=== PATIENT | female | born 1955 | race Hispanic/Latino ===

== ENCOUNTER 2016-09-14 06:34 | Emergency (ER) | payer MEDICARE ==
[2016-09-14 06:34] VITALS: BMI 22.8
[2016-09-14 06:59] VITALS: PULSE 92; RESP 20; TEMP 98; O2SAT 97
[2016-09-14 07:45] LABS: BASO % 0.5 % (0.0-2.0); EOS # 0.1 K/uL (0.0-0.7); EOS % 1.3 % (0.0-4.0); HEMATOCRIT 35.9 % (34.0-47.0); LYMPH # 1.5 K/uL (1.0-4.3); LYMPH % 14.6 % (20.0-40.0); MEAN CELL VOLUME 100.9 fl (81.0-99.0); MEAN CORPUSCULAR HEMOGLOBIN 33.8 pg (27.0-31.0); MEAN CORPUSCULAR HGB CONC 33.5 g/dL (33.0-37.0); MEAN PLATELET VOLUME 7.1 fl (7.2-11.7); MONO # 0.6 K/uL (0.0-0.8); MONO % 6.1 % (0.0-10.0); NEUT # 8.1 K/uL (1.8-7.0); NEUT % 77.5 % (50.0-75.0); RED CELL DISTRIBUTION WIDTH 16.2 % (11.5-14.5); WHITE BLOOD COUNT 10.4 K/uL (4.8-10.8)
[2016-09-14 08:04] LABS: ALB/GLOB RATIO 1.2 (1.0-2.1); ALKALINE PHOSPHATASE 80 U/L (38-126); ALT/SGPT 28 U/L (9-52); AST/SGOT 33 U/L (14-36); BILIRUBIN,TOTAL 0.4 mg/dl (0.2-1.3); BLOOD UREA NITROGEN 21 mg/dl (7-17); CALCIUM 8.9 mg/dL (8.4-10.2); CARBON DIOXIDE 24 mmol/L (22-30); CHLORIDE 107 mmol/L (98-107); GFR AFRICAN-AMERICAN > 60; GLUCOSE,RANDOM 123 mg/dL (65-105); PARTIAL THROMBOPLASTIN TIME 27.5 SECONDS (23.3-32.5); POTASSIUM 4.4 MMOL/L (3.6-5.0); SODIUM 141 mmol/l (132-148); TOTAL PROTEIN 7.2 G/DL (6.3-8.2)
--- NOTE | 2016-09-14 08:05 | ED PDOC ---
HPI: CCC, URI, Sore Throat Time Seen by Provider: 09/14/16 07:12 Chief Complaint (Nursing): ENT Problem Chief Complaint (Provider): ENT Problem History Per: Patient History/Exam Limitations: no limitations Onset/Duration Of Symptoms: Hrs Current Symptoms Are (Timing): Still Present Location Of Pain: Other Sick Contacts (Context): None Associated Symptoms: denies: Cough, Vomiting, Diarrhea Severity: Mild Additional Complaint(s): Patient is a 61 year old female with multiple medical conditions taking Plavix and ASA daily, presents to ED for a nose bleed that began yesterday evening. Patient states the bleeding is from the right nare and worsened overnight with multiple blood clots. Patient admits to frequently blowing her nose over night. Denies dark/tarry stools, vomiting or trauma Past Medical History Reviewed: Historical Data, Nursing Documentation, Vital Signs Vital Signs: Last Vital Signs Temp 98 F 09/14/16 06:58 Pulse 92 H 09/14/16 06:58 Resp 20 09/14/16 11:15 BP 131/69 09/14/16 11:15 Pulse Ox 97 09/14/16 11:17 - Medical History PMH: Anemia, Anxiety, Asthma, CAD, COPD Denies: Fractures, Chronic Kidney Disease - Surgical History Surgical History: Coronary Stent Denies: Pacemaker - Family History Family History: States: Unknown Family Hx - Living Arrangements Living Arrangements: With Family - Social History Current smoker - smoking cessation education provided: Yes Alcohol: None Drugs: Denies - Immunization History Hx Tetanus Toxoid Vaccination: No Hx Influenza Vaccination: No Hx Pneumococcal Vaccination: No - Home Medications Home Medications: Ambulatory Orders Medication Instructions Recorded Alprazolam [Xanax] 0.25 mg PO HS 02/27/12 Aspirin [Ecotrin] 81 mg PO DAILY 10/03/15 Cilostazol [Pletal] 100 mg PO BID 10/03/15 Clopidogrel [Plavix] 75 mg PO DAILY 10/03/15 Levothyroxine Sodium [Synthroid] 50 mcg PO QAM 10/03/15 Simvastatin [Zocor] 40 mg PO HS 10/03/15 Omeprazole [Prilosec] 40 mg PO DAILY 10/04/15 Sodium Chloride [Saline Mist] 44 ml NS TID #1 spray 09/14/16 - Allergies Allergies/Adverse Reactions: Allergies Allergy/AdvReac Type Severity Reaction Status Date / Time codeine Allergy Verified 08/20/15 13:34 Review of Systems Constitutional: Negative for: Weakness Eyes: Negative for: Vision Change ENT: Positive for: Nose Discharge. Negative for: Throat Swelling Cardiovascular: Negative for: Palpitations Gastrointestinal: Negative for: Nausea, Vomiting, Diarrhea, Melena, Hematochezia , Hematemesis Genitourinary Female: Negative for: Hematuria Neurological: Negative for: Weakness, Numbness, Headache, Dizziness Physical Exam - Reviewed Nursing Documentation Reviewed: Yes Vital Signs Reviewed: Yes - Physical Exam Appears: Positive for: Non-toxic Head Exam: Positive for: ATRAUMATIC Skin: Positive for: Normal Color, Warm. Negative for: Pallor Eye Exam: Positive for: Normal appearance, PERRL ENT: Positive for: Other (Right nare with area of active bleeding, to medial anterior nare) Neck: Positive for: Normal, Painless ROM Extremity: Positive for: Normal ROM Neurologic/Psych: Positive for: Alert, Oriented - Laboratory Results Result Diagrams: 09/14/16 07:36 09/14/16 07:36 - ECG O2 Sat by Pulse Oximetry: 97 (RA) Pulse Ox Interpretation: Normal Medical Decision Making Medical Decision Making: Time: 729 Initial impression: Epistaxis Initial plan: -- CMP -- PT/PTT Rhino-rocket to be placed in nare for nasal tampinode Time: 1030 As per patient request, Rhino-rocket removed, no bleeding at this time Time: 1115 Patient monitored for 45 minutes in ED, no return of bleeding. Patient denies headache, dizziness or weakness. States she feels comfortable with discharge home. Instructions for follow up with PMD given. Scribe Attestation: Documented by Megan Woodard acting as a scribe for Humberto Maya DO MD Scribe Attestation: All medical record entries made by the Scribe were at my direction and personally dictated by me. I have reviewed the chart and agree that the record accurately reflects my personal performance of the history, physical exam, medical decision making, and the department course for this patient. I have also personally directed, reviewed, and agree with the discharge instructions and disposition. Disposition - Clinical Impression Clinical Impression: Epistaxis - Patient ED Disposition Is Patient to be Admitted: No Counseled Patient/Family Regarding: Studies Performed, Diagnosis, Need For Followup, Rx Given - Disposition Referrals: Bryan Yo MD [Staff Provider] - Disposition Time: 10:45 Condition: STABLE Additional Instructions: Do not blow your nose. Discuss with your doctor before stopping plavix. See ENT for further testing and treatment. Prescriptions: Sodium Chloride [Saline Mist] 44 ml NS TID #1 spray Instructions: Nosebleed (ED)
[2016-09-14 11:16] VITALS: BP 131/69
== END 2016-09-14 11:20 | disposition home or self-care (01) ==
LOC: H.ER 06:34
DX: R04.0 Epistaxis (principal)

== ENCOUNTER 2016-09-30 19:53 | Emergency (ER) | payer MEDICARE ==
[2016-09-30 19:53] VITALS: BMI 22.8
[2016-09-30 20:18] VITALS: TEMP 98.2
--- NOTE | 2016-09-30 20:44 | ED PDOC ---
HPI: Nose Bleed Time Seen by Provider: 09/30/16 20:29 Chief Complaint (Nursing): ENT Problem Chief Complaint (Provider): Nose bleed right x 4 hours History Per: Patient History/Exam Limitations: no limitations Onset/Duration Of Symptoms: Days Current Symptoms Are (Timing): Still Present Additional Complaint(s): Pt states she was seen 2 weeks ago for the same. States at the last visit packing was placed for 2 hours than removed. Pt states bleeding did not re- occur. Pt states she did not f.u with ENT. Pt states that she does not want packing in. Past Medical History Reviewed: Historical Data, Nursing Documentation, Vital Signs Vital Signs: Last Vital Signs Temp 98.2 F 09/30/16 20:15 Pulse 125 H 09/30/16 20:15 Resp 16 09/30/16 20:15 BP 89/58 L 09/30/16 20:15 Pulse Ox 97 09/30/16 20:15 - Medical History PMH: Anemia, Anxiety, Asthma, CAD, COPD Denies: Fractures, Chronic Kidney Disease - Surgical History Surgical History: Coronary Stent Denies: Pacemaker - Family History Family History: States: Unknown Family Hx - Living Arrangements Living Arrangements: With Family - Social History Current smoker - smoking cessation education provided: No Alcohol: None Drugs: Denies - Immunization History Hx Tetanus Toxoid Vaccination: No Hx Influenza Vaccination: No Hx Pneumococcal Vaccination: No - Home Medications Home Medications: Ambulatory Orders Medication Instructions Recorded Alprazolam [Xanax] 0.25 mg PO HS 02/27/12 Aspirin [Ecotrin] 81 mg PO DAILY 10/03/15 Cilostazol [Pletal] 100 mg PO BID 10/03/15 Clopidogrel [Plavix] 75 mg PO DAILY 10/03/15 Levothyroxine Sodium [Synthroid] 50 mcg PO QAM 10/03/15 Simvastatin [Zocor] 40 mg PO HS 10/03/15 Omeprazole [Prilosec] 40 mg PO DAILY 10/04/15 Sodium Chloride [Saline Mist] 44 ml NS TID #1 spray 09/14/16 - Allergies Allergies/Adverse Reactions: Allergies Allergy/AdvReac Type Severity Reaction Status Date / Time codeine Allergy Verified 08/20/15 13:34 Review of Systems ROS Statement: Except As Marked, All Systems Reviewed And Found Negative ENT: Positive for: Other (right nose bleed ) Physical Exam - Reviewed Nursing Documentation Reviewed: Yes Vital Signs Reviewed: Yes - Physical Exam Appears: Positive for: Well, Non-toxic, No Acute Distress Head Exam: Positive for: ATRAUMATIC, NORMAL INSPECTION, NORMOCEPHALIC Skin: Positive for: Normal Color, Warm, DRY Eye Exam: Positive for: Normal appearance ENT: Positive for: Normal ENT Inspection Neck: Positive for: Normal, Painless ROM Respiratory: Negative for: Accessory Muscle Use Back: Positive for: Normal Inspection Extremity: Positive for: Normal ROM Neurologic/Psych: Positive for: Alert, Oriented - ECG O2 Sat by Pulse Oximetry: 97 Medical Decision Making Medical Decision Makin.5cm packing placed in right nostril at 20:45 and removed at 21:56. No bleeding at this time. Discussed f.u with ENT. Disposition - Clinical Impression Clinical Impression: Epistaxis - Patient ED Disposition Is Patient to be Admitted: No Counseled Patient/Family Regarding: Diagnosis, Need For Followup - Disposition Referrals: [facility] [Outside] Disposition: Routine/Home Disposition Time: 22:01 Condition: STABLE Additional Instructions: Please f/u with ENT Return for worsening symptoms. Instructions: Nosebleed (ED)
[2016-09-30 22:05] VITALS: RESP 18
[2016-09-30 22:14] VITALS: BP 126/68; PULSE 89; O2SAT 96
== END 2016-09-30 22:16 | disposition home or self-care (01) ==
LOC: H.ER 19:53
DX: R04.0 Epistaxis (principal)

== ENCOUNTER 2017-01-03 09:57 | Emergency (ER) | payer MEDICARE ==
[2017-01-03 09:57] VITALS: BMI 22.8
[2017-01-03 10:03] VITALS: RESP 20
[2017-01-03 10:08] VITALS: BP 150/78; PULSE 100; O2SAT 98
[2017-01-03] MEDS ORDERED: Bacitracin OINT 15GM TOP STA (10:26)
--- NOTE | 2017-01-03 10:30 | ED PDOC ---
HPI: General Adult Time Seen by Provider: 01/03/17 10:06 Chief Complaint (Nursing): Lower Extremity Problem/Injury History Per: Patient Additional Complaint(s): Pt. states on Saturday pt. tripped and fell injuring her L foot, L knee, and R side of neck. Pt. also reports striking the L side of her onto the pavement but did not lose consciousness nor did she develop a headache. Further states that she attempted the RICE treatment on her injuries without relief prompting ED visit today. Denies LOC, N/V, numbness, tingling, abdominal pain, chest pain, hip/pelvic pain. Of note, pt. is on plavix, cilostazol, and ASA. Past Medical History Reviewed: Historical Data, Nursing Documentation, Vital Signs Vital Signs: Last Vital Signs Temp 98.3 F 01/03/17 10:05 Pulse 100 H 01/03/17 10:05 Resp 20 01/03/17 10:05 BP 150/78 01/03/17 10:05 Pulse Ox 98 01/03/17 10:32 - Medical History PMH: Anemia, Anxiety, Asthma, CAD, COPD Denies: Fractures, Chronic Kidney Disease - Surgical History Surgical History: Coronary Stent Denies: Pacemaker - Family History Family History: States: No Known Family Hx - Immunization History Hx Tetanus Toxoid Vaccination: No Hx Influenza Vaccination: No Hx Pneumococcal Vaccination: No - Home Medications Home Medications: Ambulatory Orders Medication Instructions Recorded Alprazolam [Xanax] 0.25 mg PO HS 02/27/12 Aspirin [Ecotrin] 81 mg PO DAILY 10/03/15 Cilostazol [Pletal] 100 mg PO BID 10/03/15 Clopidogrel [Plavix] 75 mg PO DAILY 10/03/15 Levothyroxine Sodium [Synthroid] 50 mcg PO QAM 10/03/15 Simvastatin [Zocor] 40 mg PO HS 10/03/15 Omeprazole [Prilosec] 40 mg PO DAILY 10/04/15 Sodium Chloride [Saline Mist] 44 ml NS TID #1 spray 09/14/16 Cephalexin [cephalexin] 500 mg PO Q6 #28 cap 01/03/17 - Allergies Allergies/Adverse Reactions: Allergies Allergy/AdvReac Type Severity Reaction Status Date / Time codeine Allergy Mild RASH Verified 01/03/17 10:08 Review of Systems ROS Statement: Except As Marked, All Systems Reviewed And Found Negative Musculoskeletal: Positive for: Neck Pain, Foot Pain Physical Exam - Reviewed Nursing Documentation Reviewed: Yes Vital Signs Reviewed: Yes - Physical Exam Appears: Positive for: Well, Non-toxic, No Acute Distress Head Exam: Positive for: ATRAUMATIC, NORMAL INSPECTION, NORMOCEPHALIC Skin: Positive for: Normal Color, Warm. Negative for: Rash Eye Exam: Positive for: EOMI, Normal appearance, PERRL ENT: Positive for: Normal ENT Inspection Neck: Positive for: Normal, Painless ROM Cardiovascular/Chest: Positive for: Regular Rate, Rhythm, Chest Non Tender Respiratory: Positive for: CNT, Normal Breath Sounds Pulses-Dorsalis Pedis (L): 2+ Pulses-Dorsalis Pedis (R): 2+ Gastrointestinal/Abdominal: Positive for: Normal Exam, Bowel Sounds, Soft. Negative for: Tenderness Back: Positive for: Normal Inspection. Negative for: L CVA Tenderness, R CVA Tenderness, Vertebral Tenderness Extremity: Positive for: Normal ROM, Capillary Refill (< 2 seconds b/l of lower extremities), Other (L foot with mild tenderness on medial surface without deformity or swelling, L knee with large superficial abrasion and with mild swelling and tenderness on anterior surface; ). Negative for: Pedal Edema Neurologic/Psych: Positive for: Alert, Oriented, Gait (steady and unassisted). Negative for: Aphasia, Facial Droop - ECG O2 Sat by Pulse Oximetry: 98 - Radiology X-Ray: Interpreted by Me (L foot, L knee, c-spine xrays) X-Ray Interpretation: No Acute Disease - CT Scan/US CT head w/o contrast Other Rad Studies (CT/US): Read By Radiologist (negative) - Progress ED Course And Treament: Tylenol 975mg PO ordered. CT head w/o contrast ordered. L foot, L knee, c-spine x-rays ordered. Wounds cleansed and dressed. Bacitracin applied over wound. Tetanus prophylaxis administered. Disposition - Clinical Impression Clinical Impression: Head injury, Foot injury, Knee injury, Abrasion - Patient ED Disposition Is Patient to be Admitted: No - Disposition Disposition: Routine/Home Disposition Time: 13:00 Condition: STABLE Prescriptions: Cephalexin [cephalexin] 500 mg PO Q6 #28 cap Instructions: Head Injury (ED), Sprain (ED), Abrasion (ED) Print Language: MALAY
--- NOTE | 2017-01-03 11:29 | CT ---
PROCEDURE: CT HEAD WITHOUT CONTRAST. HISTORY: trauma COMPARISON: None available. TECHNIQUE: Axial computed tomography images were obtained through the head/brain without intravenous contrast. Radiation dose: Total exam DLP = 763.05 mGy-cm. This CT exam was performed using one or more of the following dose reduction techniques: Automated exposure control, adjustment of the mA and/or kV according to patient size, and/or use of iterative reconstruction technique. FINDINGS: HEMORRHAGE: No intracranial hemorrhage. BRAIN: No mass effect or edema. Minimal chronic periventricular white matter ischemic change. VENTRICLES: Unremarkable. No hydrocephalus. CALVARIUM: No calvarial fracture. Minimal ecchymosis of the high left parietal scalp indicating probable focal trauma. PARANASAL SINUSES: Unremarkable as visualized. No significant inflammatory changes. MASTOID AIR CELLS: Unremarkable as visualized. No inflammatory changes. OTHER FINDINGS: None. IMPRESSION: No intracranial hemorrhage. Otherwise unremarkable.
--- NOTE | 2017-01-03 12:14 | RAD ---
PROCEDURE: Cervical Spine Radiographs. HISTORY: Pain. COMPARISON: None. FINDINGS: BONES: Alignment maintained. No fracture. Dens Intact. DISC SPACES: There is disc degeneration at C5-6 with anterior and posterior osteophytes SOFT TISSUES: Normal. No prevertebral soft tissue swelling. OTHER FINDINGS: None. IMPRESSION: There is disc degeneration at C5-6 with anterior and posterior osteophytes
--- NOTE | 2017-01-03 12:15 | RAD ---
PROCEDURE: Left Knee Radiographs. HISTORY: Pain. COMPARISON: None. FINDINGS: BONES: Normal. No fracture. JOINTS: Normal. No osteoarthritis. JOINT EFFUSION: None. OTHER FINDINGS: The patella is unremarkable IMPRESSION: Normal radiographs of the left knee.
--- NOTE | 2017-01-03 12:16 | RAD ---
PROCEDURE: Left Foot Radiographs. HISTORY: trauma COMPARISON: None. FINDINGS: BONES: Normal. No fracture. JOINTS: Normal. SOFT TISSUES: Normal. OTHER FINDINGS: None. IMPRESSION: Normal left foot radiographs.
[2017-01-03] MEDS ORDERED: TDAP Vaccine 0.5 mL Syr IM ONE (12:59)
[2017-01-03 13:52] VITALS: TEMP 98.7
== END 2017-01-03 13:30 | disposition home or self-care (01) ==
LOC: H.ER 09:57
DX: S09.90XA Unspecified injury of head, initial encounter (principal); S99.922A Unspecified injury of left foot, initial encounter; W01.0XXA Fall on same level from slipping, tripping and stumbling without subsequent striking against object, initial encounter; Y92.89 Other specified places as the place of occurrence of the external cause; Z79.82 Long term (current) use of aspirin; M50.323 Other cervical disc degeneration at C6-C7 level; Z95.5 Presence of coronary angioplasty implant and graft

== ENCOUNTER 2017-01-09 21:15 | Observation (INO) | payer MEDICARE ==
[2017-01-09 21:15] VITALS: BMI 22.8
[2017-01-09 22:21] LABS: BASO # 0.1 K/uL (0.0-0.2); BASO % 1.1 % (0.0-2.0); EOS # 0.1 K/uL (0.0-0.7); EOS % 1.6 % (0.0-4.0); HEMOGLOBIN 13.7 g/dL (12.0-16.0); LYMPH # 2.4 K/uL (1.0-4.3); LYMPH % 30.2 % (20.0-40.0); MEAN CORPUSCULAR HEMOGLOBIN 32.2 pg (27.0-31.0); MEAN CORPUSCULAR HGB CONC 32.9 g/dL (33.0-37.0); MEAN PLATELET VOLUME 7.4 fl (7.2-11.7); MONO # 0.5 K/uL (0.0-0.8); MONO % 6.9 % (0.0-10.0); NEUT # 4.8 K/uL (1.8-7.0); NEUT % 60.2 % (50.0-75.0); RBC 4.24 Mil/uL (3.80-5.20); RED CELL DISTRIBUTION WIDTH 15.6 % (11.5-14.5); WHITE BLOOD COUNT 7.9 K/uL (4.8-10.8)
[2017-01-09 22:29] LABS: BLOOD UREA NITROGEN 12 mg/dl (7-17); CALCIUM 10.1 mg/dL (8.4-10.2); GFR AFRICAN-AMERICAN > 60; GFR NON-AFRICAN AMERICAN > 60
[2017-01-09 22:36] LABS: PARTIAL THROMBOPLASTIN TIME 35.3 Seconds (25.6-37.1); PROTHROMBIN TIME 11.6 Seconds (9.8-13.1)
--- NOTE | 2017-01-09 22:36 | ED PDOC ---
HPI: General Adult Time Seen by Provider: 01/09/17 21:35 Chief Complaint (Nursing): Weakness/Neurological Deficit Chief Complaint (Provider): Weakness/Neurological Deficit History Per: Patient History/Exam Limitations: no limitations Onset/Duration Of Symptoms: Days (x3 days) Current Symptoms Are (Timing): Still Present Additional Complaint(s): 61 y/o female with a past medical history of hypertension, chronic obstructive pulmonary disease, and peripheral vascular disease (PVD) who presents to the emergency department with a complaint of left sided numbness x3 days. Associated with left lower leg numbness. States numbness is intermittent. Reports additional complaints of a burning and swelling sensation with pain of the left lower leg x1 week. Patient visited this facility 2 weeks ago with injury of the lef knee and connects it with current complaints. Denies chest pain, dizziness, syncope, weakness, blurry vision, slurred speech, facial droop , headache or any new fall. Of note, patient visited this emergency room when she feel 2 weeks ago and sustained left knee injury. Completed Head CAT Scan and left knee x-ray show no acute findings and was discharged home. PMD: Dr. Isela Desouza MD Past Medical History Reviewed: Historical Data, Nursing Documentation, Vital Signs Vital Signs: Last Vital Signs Temp 98.8 F 01/10/17 16:24 Pulse 85 01/10/17 16:24 Resp 16 01/10/17 16:24 BP 100/67 01/10/17 16:24 Pulse Ox 96 01/10/17 16:24 - Medical History PMH: Anemia, Anxiety, Asthma, CAD, COPD Denies: Fractures, Chronic Kidney Disease Other PMH: Peripheral vascular Disease - Surgical History Surgical History: Coronary Stent Denies: Pacemaker Other surgeries: Vessel stents - Family History Family History: States: Unknown Family Hx - Social History Current smoker - smoking cessation education provided: Yes (Heavy Smoker > 10 Cigarettes Daily) Alcohol: > 2 Drinks/Day (had 4 beers today) Drugs: Denies - Immunization History Hx Tetanus Toxoid Vaccination: No Hx Influenza Vaccination: No Hx Pneumococcal Vaccination: No - Home Medications Home Medications: Ambulatory Orders Medication Instructions Recorded Alprazolam [Xanax] 0.25 mg PO HS 02/27/12 Aspirin [Ecotrin] 81 mg PO DAILY 10/03/15 Cilostazol [Pletal] 100 mg PO BID 10/03/15 Clopidogrel [Plavix] 75 mg PO DAILY 10/03/15 Levothyroxine Sodium [Synthroid] 50 mcg PO QAM 10/03/15 Simvastatin [Zocor] 40 mg PO HS 10/03/15 Omeprazole [Prilosec] 40 mg PO DAILY 10/04/15 Sodium Chloride [Saline Mist] 44 ml NS TID #1 spray 09/14/16 Cephalexin [Keflex] 500 mg PO Q6 #28 cap 01/03/17 - Allergies Allergies/Adverse Reactions: Allergies Allergy/AdvReac Type Severity Reaction Status Date / Time codeine Allergy Mild RASH Verified 01/03/17 10:08 Review of Systems ROS Statement: Except As Marked, All Systems Reviewed And Found Negative Eyes: Negative for: Other (Blurry vision) Cardiovascular: Negative for: Chest Pain Musculoskeletal: Positive for: Other (Burning and swelling sensation of the left lower leg. With left hip pain. ) Neurological: Positive for: Numbness (Left sided numbness of the left arm and left lower leg). Negative for: Weakness (or facial droop), Headache, Other ( Slurred speech, syncope or new falls) Physical Exam - Reviewed Nursing Documentation Reviewed: Yes Vital Signs Reviewed: Yes - Physical Exam Appears: Positive for: Non-toxic, No Acute Distress (Comfortable). Negative for : Uncomfortable Head Exam: Positive for: ATRAUMATIC, NORMAL INSPECTION, NORMOCEPHALIC Skin: Positive for: Normal Color, Warm, Dry Eye Exam: Positive for: Normal appearance, EOMI, PERRL Neck: Positive for: Normal, Supple Cardiovascular/Chest: Positive for: Regular Rate, Rhythm. Negative for: Bradycardia Respiratory: Positive for: Normal Breath Sounds. Negative for: Accessory Muscle Use, Respiratory Distress Gastrointestinal/Abdominal: Positive for: Normal Exam, Soft. Negative for: Tenderness Extremity: Positive for: Normal ROM (Full ROM. Normal pulses throughout all extremities), Tenderness (Left lower leg tenderness. ), Swelling (Left lower leg swelling. ), Other (Shoulder exam was normal. Left upper arm has small amount of ecchymosis as well as on the left hip area. Mild erythema noted around the knee with swelling around and abrasionas on the patella from previous fall.). Negative for: Deformity (No deformity or swelling of the left hip area. ) Neurologic/Psych: Positive for: Alert, deli slicer II-XII (Grossly intact. ), Oriented, Motor/Sensory Deficits (Motor is intact with 5/5 strength of all extremities with decreased sensation of the left arm and left lower leg. ) - Laboratory Results Result Diagrams: 01/09/17 22:15 01/09/17 22:15 - ECG O2 Sat by Pulse Oximetry: 98 (RA) Pulse Ox Interpretation: Normal Medical Decision Making Medical Decision Making: Time: 22:04 Initial impression: Left sided numbness. Differential include cerebrovascular accident, nueropathy associated with peripheral vascular disease. Additional diagnosis include hip, shoulder, knee injury and alcohol abuse. Initial plan: --Head w/o contrast CT --EKG --Alcohol Serum --BMP --Drug Screen, urine --Troponin I --PTT --Prothrombin Time --AccuCheck --Hip 1 View W/ pelvis X-ray --Shoulder Left X-ray --Duplex Lower Extrm Vein US --Reevaluation Time: 22:15 --Alcohol, Quantitative: 213 (H) Scribe Attestation: Documented by Marzena Stone, acting as a scribe for Montez Esparza MD. Provider Scribe Attestation: All medical record entries made by the Scribe were at my direction and personally dictated by me. I have reviewed the chart and agree that the record accurately reflects my personal performance of the history, physical exam, medical decision making, and the department course for this patient. I have also personally directed, reviewed, and agree with the discharge instructions and disposition. ----- Time: 7 CT SCAN RESULTS EXAM: CT Head Without Intravenous Contrast CLINICAL HISTORY: 61 years old, female; Signs and symptoms; Weakness, extremity; Left; Additional info: Numbness TECHNIQUE: Axial computed tomography images of the head/brain without intravenous contrast. This CT exam was performed using one or more of the following dose reduction techniques: automated exposure control, adjustment of the mA and/or kV according to patient size, and/or use of iterative reconstruction technique. Coronal and sagittal reformatted images were created and reviewed. EXAM DATE/TIME: 01/09/2017 10:04 PM COMPARISON: CT - HEAD W/O CONTRAST 01/03/2017 10:32:56 AM FINDINGS: Brain: Ventricles are normal in size and configuration. There is no midline shift. There are no intraaxial or extra-axial mass lesions or areas of hemorrhage. There are no abnormal fluid collections. Brown-white differentiation is maintained. Ventricles: See above. Bones: Cranial vault is intact. Soft tissues: unremarkable Sinuses: There is no acute sinusitis. Ears and mastoids: Middle ears and mastoids are unremarkable Orbits: Orbital contents are unremarkable. IMPRESSION: No acute intracranial abnormality If there is suspicion for acute stroke, MRI may be helpful Time: 6 EXAM: US Duplex Left Lower Extremity Veins CLINICAL HISTORY: 61 years old, female; Pain; Leg, lower; Left; Additional info: Leg swelling pain knee injury TECHNIQUE: Real-time ultrasound scan of the veins of the left lower extremity with color Doppler flow, spectral waveform analysis and compression. EXAM DATE/TIME: 01/09/2017 10:05 PM COMPARISON: There are no prior studies for comparison. FINDINGS: Deep veins: Common femoral, superficial femoral, popliteal and posterior tibial veins were evaluated. All veins examined are compressible. There are no intraluminal filling defects. There is expected blood flow on Doppler imaging. There is change in waveform with augmentation. Impression: No deep venous thrombosis in the visualized vascular segments of the left lower extremity. Scribe Attestation: Documented by Gretchen Ortiz, acting as a scribe for Montez Esparza MD. Scribe Attestation: All medical record entries made by the Scribe were at my direction and personally dictated by me. I have reviewed the chart and agree that the record accurately reflects my personal performance of the history, physical exam, medical decision making, and the department course for this patient. I have also personally directed, reviewed, and agree with the discharge instructions and disposition. Disposition - Clinical Impression Clinical Impression: Numbness, Alcohol intoxication, Left leg swelling - Patient ED Disposition Is Patient to be Admitted: Yes Discussed With Dr.: Madi Kirkpatrick Doctor Will See Patient In The: Hospital Counseled Patient/Family Regarding: Studies Performed, Diagnosis - Disposition Disposition Time: 00:15 Condition: FAIR - Pt Status Changed To: Hospital Disposition Of: Observation - POA Present On Arrival: Falls Or Trauma
--- NOTE | 2017-01-09 23:08 | CT ---
EXAM: CT Head Without Intravenous Contrast CLINICAL HISTORY: 61 years old, female; Signs and symptoms; Weakness, extremity; Left; Additional info: Numbness TECHNIQUE: Axial computed tomography images of the head/brain without intravenous contrast. This CT exam was performed using one or more of the following dose reduction techniques: automated exposure control, adjustment of the mA and/or kV according to patient size, and/or use of iterative reconstruction technique. Coronal and sagittal reformatted images were created and reviewed. EXAM DATE/TIME: 01/09/2017 10:04 PM COMPARISON: CT - HEAD W/O CONTRAST 01/03/2017 10:32:56 AM FINDINGS: Brain: Ventricles are normal in size and configuration. There is no midline shift. There are no intra-axial or extra-axial mass lesions or areas of hemorrhage. There are no abnormal fluid collections. Brown-white differentiation is maintained. Ventricles: See above. Bones: Cranial vault is intact. Soft tissues: unremarkable Sinuses: There is no acute sinusitis. Ears and mastoids: Middle ears and mastoids are unremarkable Orbits: Orbital contents are unremarkable. IMPRESSION: No acute intracranial abnormality If there is suspicion for acute stroke, MRI may be helpful
[2017-01-09 23:33] LABS: BARBITURATES, UR NEGATIVE (NEGATIVE); BENZODIAZEPINES, UR NEGATIVE (NEGATIVE); OPIATES, UR NEGATIVE (NEGATIVE); PHENCYCLIDINE, UR NEGATIVE (NEGATIVE)
--- NOTE | 2017-01-10 00:06 | US ---
EXAM: US Duplex Left Lower Extremity Veins CLINICAL HISTORY: 61 years old, female; Pain; Leg, lower; Left; Additional info: Leg swelling pain knee injury TECHNIQUE: Real-time ultrasound scan of the veins of the left lower extremity with color Doppler flow, spectral waveform analysis and compression. EXAM DATE/TIME: 01/09/2017 10:05 PM COMPARISON: There are no prior studies for comparison. FINDINGS: Deep veins: Common femoral, superficial femoral, popliteal and posterior tibial veins were evaluated. All veins examined are compressible. There are no intraluminal filling defects. There is expected blood flow on Doppler imaging. There is change in waveform with augmentation. Impression: No deep venous thrombosis in the visualized vascular segments of the left lower extremity
[2017-01-10] MEDS ORDERED: Sodium Chloride 0.9% 1,000 ML IV STA (03:10)
[2017-01-10] MEDS: Dextrose 5%/0.9% NS 1,000 ML IV SCH ×2 (06:43→17:19)
[2017-01-10] MEDS ORDERED: Pneumococcal 23-Valent Vaccine IM ONE (09:00)
[2017-01-10] MEDS ORDERED: Levothyroxine 50 MCG TAB PO SCH (09:00)
[2017-01-10] MEDS: Cilostazol 100 mg Tab UD PO SCH ×2 (09:05→17:17)
--- NOTE | 2017-01-10 10:21 | CARD ---
APPROVED REPORT EKG Measurement Heart [id number] <Conclusion> Normal sinus rhythm Biatrial enlargement Rightward axis Possible septal infarct, age undetermined Abnormal ECG
--- NOTE | 2017-01-10 10:37 | RAD ---
PROCEDURE: Left Hip X-ray Radiographs. HISTORY: left hip pain injury COMPARISON: None. FINDINGS: BONES: Normal. No fracture. JOINTS: Normal. SOFT TISSUES: Bilateral common iliac stents. OTHER FINDINGS: None. IMPRESSION: Normal left hip radiographs.
--- NOTE | 2017-01-10 10:39 | RAD ---
PROCEDURE: Radiographs of the Left Shoulder HISTORY: shoulder pain injury COMPARISON: No prior. FINDINGS: BONES: Normal. No fracture. JOINTS: Normal. Glenohumeral and acromioclavicular joints preserved. No osteoarthritis. SOFT TISSUES: Normal. OTHER FINDINGS: None. IMPRESSION: Normal radiographs of the left shoulder.
--- NOTE | 2017-01-10 14:53 | US ---
PROCEDURE: Carotid vertebral duplex sonography HISTORY: assess stenosis COMPARISON: None available. TECHNIQUE: Grayscale, color Doppler and spectral Doppler assessment of the carotid system bilaterally. This includes common carotid, internal carotid arteries Vertebral artery assessment with respect to direction of flow (antegrade or retrograde) FINDINGS: RIGHT carotid system: Assessment of plaque: Heterogeneous plaque formation. Densely calcified plaque at the right carotid bifurcation noted. Peak systolic ICA velocity: 181.3 cm/sec End-diastolic velocity: 35.9 cm/sec ICA/CCA ratio: 1.8 Vertebral artery flow: Antegrade LEFT carotid system: Assessment of plaque: Heterogeneous plaque formation. Peak systolic ICA velocity: 137.3 cm/sec End-diastolic velocity: 36.4 cm/sec ICA/CCA ratio: 1.1 Vertebral artery flow: Antegrade IMPRESSION: Right ICA degree of stenosis: 50- 69%. Left ICA degree of stenosis: 50- 69%. Reference Internal Carotid Artery (ICA) Peak Systolic Velocity (PSV) for above: 1. Less than 50% stenosis less than 125 cm/s peak systolic velocity 2. 50-69% stenosis 125-230cm/s peak systolic velocity 3. Greater than 70% but less than near occlusion greater than 230 cm/s peak systolic velocity
[2017-01-10 16:25] VITALS: BP 100/67; PULSE 85; RESP 16; TEMP 98.8
[2017-01-10 17:42] LABS: FOLATE 8.8 ng/mL
--- NOTE | 2017-01-10 18:22 | CARD ---
APPROVED REPORT EXAM: Two-dimensional and M-mode echocardiogram with Doppler and color Doppler. Other Information Quality : FairRhythm : NSR INDICATION CVA/TIA Cardiogenic stroke 2D DIMENSIONS IVSd0.81 (0.7-1.1cm)LVDd3.81 (3.9-5.9cm) LVOT Diameter1.75 (1.8-2.4cm)PWd0.91 (0.7-1.1cm) IVSs1.08 (0.8-1.2cm)LVDs2.74 (2.5-4.0cm) FS (%) 28.1 %PWs1.23 (0.8-1.2cm) M-Mode DIMENSIONS Left Atrium (MM)3.24 (2.5-4.0cm)IVSd0.69 (0.7-1.1cm) Aortic Root2.26 (2.2-3.7cm)LVDd4.07 (4.0-5.6cm) Aortic Cusp Exc.1.72 (1.5-2.0cm)PWd1.00 (0.7-1.1cm) IVSs1.65 cmFS (%) 60 % LVDs1.62 (2.0-3.8cm)PWs1.80 cm Mitral Valve MV E Mkqdrdwt96.6cm/sMV DECEL [id number] A Zzkmisxv937.6cm/s MV LJX88yqU/A ratio0.8MVA (PHT)2.46cm2 TDI E/Lateral E'0.0E/Medial E'0.0 Pulmonary Valve PV Peak Ojvblywr69.7cm/s LEFT VENTRICLE The left ventricle is normal size. There is normal left ventricular wall thickness. The left ventricular function is normal. The left ventricular ejection fraction is - 70%. There is normal LV segmental wall motion. Transmitral Doppler flow pattern is Grade I-abnormal relaxation pattern. No left ventricle thrombus noted on this study. There is no ventricular septal defect visualized. There is no left ventricular aneurysm. There is no mass noted in the left ventricle. RIGHT VENTRICLE The right ventricle is normal size. There is normal right ventricular wall thickness. The right ventricular systolic function is normal. ATRIA The left atrium size is normal. There is no thrombus suspected in the left atrium. The right atrium size is normal. The interatrial septum is intact with no evidence for an atrial septal defect. AORTIC VALVE The aortic valve is normal in structure and function. No aortic regurgitation is present. There is no aortic valvular stenosis. MITRAL VALVE The mitral valve is normal in structure and function. There is no evidence of mitral valve prolapse. There is no mitral valve stenosis. There is no mitral valve regurgitation noted. TRICUSPID VALVE The tricuspid valve is normal in structure and function. There is no tricuspid valve regurgitation noted. There is no tricuspid valve prolapse or vegetation. There is no tricuspid valve stenosis. PULMONIC VALVE The pulmonary valve is normal in structure and function. There is no pulmonic valvular regurgitation. GREAT VESSELS The aortic root is normal in size. The IVC is normal in size and collapses >50% with inspiration. PERICARDIAL EFFUSION There is a small anterior pericardial effusion. There is no pleural effusion. <Conclusion> The study is only of fair quality. The left ventricle is normal in size and wall thickness. The left ventricular function is normal. The left ventricular ejection fraction is - 70%. The left atrium, right ventricle and right atrium are normal in size. The aortic, mitral and tricuspid valves are normal. There is a small anterior pericardial effusion.
[2017-01-10 19:16] VITALS: O2SAT 98
== END 2017-01-10 19:30 | disposition home or self-care (01) ==
LOC: H.ER 21:15 → H.ERHOLD 01-10 00:16 → H.TEL 01-10 04:28
PROVIDERS: ADMIT Family Medicine; ATTEND Family Medicine
DX: F10.129 Alcohol abuse with intoxication, unspecified (principal); I25.10 Atherosclerotic heart disease of native coronary artery without angina pectoris; Z95.5 Presence of coronary angioplasty implant and graft; Z79.899 Other long term (current) drug therapy; Z79.82 Long term (current) use of aspirin; Z79.02 Long term (current) use of antithrombotics/antiplatelets; J44.9 Chronic obstructive pulmonary disease, unspecified; I10 Essential (primary) hypertension; I73.9 Peripheral vascular disease, unspecified; F17.210 Nicotine dependence, cigarettes, uncomplicated; R20.0 Anesthesia of skin
CPT/HCPCS: 36415; 70450; 73030; 73501; 80048; 82607; 82746; 82948; 83036; 83090; 84443; 84484; 85025; 85610; 85730; 86334; 86592; 93005; 93306; 93880; 93971; 97161; 99285; G0378; G0480; G8978; G8979; J7040; J7042